=== PATIENT | female | born 1965 | race Hispanic/Latino ===

== ENCOUNTER 2017-05-14 16:05 | Outpatient (CLI) | payer OTHER | END 2017-05-14 16:06 | disposition home or self-care (01) | LOC: BICMAMMO 16:05 | PROVIDERS: ATTEND Family Medicine | DX: Z12.31 Encounter for screening mammogram for malignant neoplasm of breast (principal) | CPT/HCPCS: 77063; 77067 ==

== ENCOUNTER 2018-05-12 16:02 | Outpatient (CLI) | payer OTHER | END 2018-05-12 16:03 | disposition home or self-care (01) | LOC: BICMAMMO 16:02 | PROVIDERS: ATTEND Family Medicine | DX: Z12.31 Encounter for screening mammogram for malignant neoplasm of breast (principal); R92.1 Mammographic calcification found on diagnostic imaging of breast; Z80.3 Family history of malignant neoplasm of breast | CPT/HCPCS: 77063; 77067 ==

== ENCOUNTER 2019-10-21 22:10 | Emergency (ER) | payer OTHER ==
[~2019-10-21 22:10] MED LIST: Iopamidol 370 76% 100 ML VIAL ONE
[2019-10-21] MEDS ORDERED: Ondansetron PF 4 MG/2 ML Vial ONE (22:41)
[2019-10-21] MEDS ORDERED: Fentanyl 100 MCG/2 ML VIAL ONE (22:41)
[2019-10-21] MEDS ORDERED: Ketorolac Tromethamine 30 MG/ML VIAL ONE ×2 (22:42→23:13)
[2019-10-21 23:12] LABS: #Eosinphils 0.1 thou/uL (0.0-0.7); #Lymphocytes 1.5 thou/uL (1.20-3.40); #Monocytes 0.5 thou/uL (0.11-0.59); #Neutrophils 5.9 thou/uL (1.40-6.50); %Basophils 0.4 % (0.0-1.0); %Lymphocytes 18.8 % (21.0-51.0); %Monocytes 6.4 % (0.0-10.0); %Neutrophils 73.4 % (42.0-75.0); Hemoglobin 14.6 g/dL (12.0-16.0); Mean Corpuscular HGB CONC 33.7 g/dL (32.0-36.0); Mean Platelet Volume 7.9 fL (7.4-10.4); Platelet Count 271 thou/uL (130-400); Red Blood Cell (RBC) Count 4.87 mill/uL (4.20-5.40); White Blood Cell (WBC) Count 8.1 thou/uL (4.8-10.8)
[2019-10-21 23:15] LABS: BHCG - Serum Negative (NEGATIVE); Pregs Control Background? CLEAR/WHITE (CLR/WHITE); Pregs Control Bar Appear? YES (CONTROL BAR)
[2019-10-21 23:27] LABS: ALT (SGPT) 52 U/L (8-55); AST (SGOT) 42 U/L (5-34); Albumin 4.5 g/dL (3.5-5.0); Alkaline Phosphatase 115 U/L (40-110); Anion Gap 11 mmol/L (10-20); BUN (Urea Nitrogen) 8 mg/dL (9.8-20.1); Bilirubin, Total 0.3 mg/dL (0.2-1.2); Calc. Creatinine Clearance 0 mL/min (70-130); Calcium 9.2 mg/dL (7.8-10.44); Carbon Dioxide 30 mmol/L (22-29); Chloride 103 mmol/L (98-107); Estimated GFR-MDRD 78; Globulin 3.5 g/dL (2.4-3.5); Glucose 98 mg/dL (70-105); Lipase 42 U/L (8-78); Sodium 140 mmol/L (136-145)
--- NOTE | 2019-10-21 23:48 | ULT ---
TRANSABDOMINAL TRANSVAGINAL PELVIC ULTRASOUND DATE:: 10/21/2019 10:37 PM CLINICAL HISTORY: Menorrhagia. COMPARISON: February 07, 2016 TECHNIQUE: Grayscale, color Doppler and spectral Doppler images were obtained of the pelvis see a tra nsabdominal and transvaginal approach FINDINGS: UTERUS: The uterus is surgically absent OVARIES: The right ovary was not visualized. Size: Left measures 1.5 x 2.0 x 2 cm cm Mass: None. Flow: Normal to the left ovary CUL-DE-SAC: Minimal free fluid IMPRESSION: Hysterectomy. Nonvisualization of the right ovary. Visualized left ovary appeared within normal limits.
[2019-10-21 23:50] LABS: CK (CPK) 85 U/L (29-168)
[2019-10-21 23:58] LABS: Bacteria/HPF None Seen HPF (None Seen); Bilirubin Negative (Negative); Blood, Urine Negative (Negative); Clarity Clear (Clear); Glucose, Urine (Dipstick) Normal (Negative); Ketone, Urine Negative (Negative); Leukocyte 25 Leu/uL (Negative); Nitrite Negative (Negative); Protein, Urine (Dipstick) Negative (Neg-Trace); RBC/HPF 0-3 HPF (0-3); Specific Gravity, Urine 1.008 (1.002-1.036); Urobilinogen Normal mg/dL (Less than 2); pH, Urine 7.5 (5.0-9.0)
[2019-10-22] MEDS ORDERED: Morphine 2 MG/ML SYRINGE ONE
--- NOTE | 2019-10-22 07:08 | CT ---
CT ABDOMEN AND PELVIS WITH IV CONTRAST: Date: 10/21/2019 INDICATION: 54-year-old female with history of hysterectomy and left lower quadrant abdominal pain. FINDINGS: There is wall thickening and pericolonic inflammatory stranding with scattered colonic diverticula in volving the sigmoid colon consistent with changes of noncomplicated sigmoid diverticulitis. There is a mild amount of retained stool in the colon. There is a normal appendix in the right lower quadrant. Lung bases appear within normal limits. The visualized liver is unremarkable appearing. Gallbladder i s surgically absent. Pancreas and adrenal glands are normal appearing. Kidneys are normal appearing. Spleen is normal appearing. There are mild vascular calcifications involving the abdominal aorta. There is postprocedural change of prior hysterectomy. Left ovary demonstrates a small, 2.1 cm, cyst. Right ovary is not visualized. There is mild free fluid in the pelvis. No drainable fluid collection is evident. No acute osseous abnormality is evident. IMPRESSION: 1. Findings of noncomplicated sigmoid diverticulitis. 2. Left ovarian follicular cyst. 3. Cholecystectomy. 4. Mild amount of retained stool within the colon. POS: BH
== END 2019-10-22 01:05 | disposition home or self-care (01) ==
LOC: ERS 22:10
DX: K57.32 Diverticulitis of large intestine without perforation or abscess without bleeding (principal)
CPT/HCPCS: 74177; 76856; 80053; 81003; 81015; 82550; 83690; 84703; 85025; 96361; 96374; 96375; J1885; J2270; J2405; J3010; Q9967

== ENCOUNTER 2021-10-31 08:27 | Outpatient (CLI) | payer BC | END 2021-10-31 08:28 | disposition home or self-care (01) | LOC: BICMAMMO 08:27 | PROVIDERS: ATTEND Family Medicine | DX: Z12.31 Encounter for screening mammogram for malignant neoplasm of breast (principal); Z80.3 Family history of malignant neoplasm of breast | CPT/HCPCS: 77063; 77067 ==

== ENCOUNTER 2021-11-20 07:41 | Outpatient (CLI) | payer BC | END 2021-11-20 07:42 | disposition home or self-care (01) | LOC: SCSMRI 07:41 | PROVIDERS: ATTEND Orthopaedic Surgery | DX: M23.91 Unspecified internal derangement of right knee (principal) ==

== ENCOUNTER 2021-12-05 10:17 | Outpatient (CLI) | payer BC | END 2021-12-05 10:18 | disposition home or self-care (01) | LOC: LABBT 10:17 | PROVIDERS: ATTEND Orthopaedic Surgery | DX: Z20.822 Contact with and (suspected) exposure to COVID-19 (principal) | CPT/HCPCS: 87811 ==